=== PATIENT | female | born 1975 | race Caucasian/White ===

== ENCOUNTER 2024-06-04 15:48 | Outpatient (CLI) | payer OTHER ==
[~2024-06-04 15:48] MED LIST: DESPEC-DM TABL1 EACH PO; LOSARTAN POTASS25 MG PO
== END 2024-06-04 15:53 | disposition home or self-care (01) ==
LOC: RAD 15:48
PROVIDERS: ATTEND Obstetrics & Gynecology
DX: Z01.818 Encounter for other preprocedural examination (principal)

== ENCOUNTER 2024-06-06 10:45 | Inpatient (IN) | payer OTHER ==
[2024-06-06] MEDS ORDERED: ACIDOPHILUS1 EAC3 (12:55)
[2024-06-06] MEDS ORDERED: LORAZEPAM0.5 MG (12:55)
[2024-06-06] MEDS ORDERED: METFORMIN HCL500 M3 (12:55)
[2024-06-06] MEDS ORDERED: PEPCID (12:56)
[2024-06-06] MEDS ORDERED: LIPITOR (12:56)
[2024-06-06] MEDS ORDERED: BUDESONIDE (12:58)
[2024-06-06] MEDS ORDERED: VITAMIN D (12:59)
[2024-06-06] MEDS ORDERED: ABILIFY10 MG (12:59)
[2024-06-06 13:00] VITALS: BP 124/78
[2024-06-10] MEDS ORDERED: CEFAZOLIN SODIUM 1,000 MG VIAL ONE ×2 (11:24→18:32)
[2024-06-10] MEDS ORDERED: ENALAPRILAT DIHYDRATE 1.25 MG/ML VIAL IV ONE (14:14)
[2024-06-10] MEDS ORDERED: CEFAZOLIN SODIUM 1,000 MG VIAL IV ONE (15:00)
[2024-06-10] MEDS ORDERED: SUGAMMADEX SODIUM 200 MG/2 ML VIAL IV ONE (15:27)
[2024-06-10] MEDS ORDERED: PROMETHAZINE HCL 25 MG/ML AMPUL IV SCH (16:02)
[2024-06-10] MEDS ORDERED: MEPERIDINE HCL/PF 50 MG/ML VIAL IV SCH (16:02)
[2024-06-10] MEDS ORDERED: POLYETHYLENE GLYCOL 3350 17 GM BLIST.PACK PO SCH (17:00)
[2024-06-10] MEDS ORDERED: CEFAZOLIN SODIUM 1,000 MG VIAL IV SCH (17:00)
[2024-06-10] MEDS ORDERED: MORPHINE SULFATE 4 MG/ML VIAL IV ONE (17:15)
[2024-06-10 19:22] VITALS: BP 124/78
[2024-06-11 01:00] VITALS: BP 132/86
[2024-06-11] MEDS ORDERED: IBUprofen 800 MG TABLET PO SCH (02:00)
[2024-06-11 04:34] LABS: HEMATOCRIT 29.5 % (36.0-45.00); MEAN CELL VOLUME 71.9 fL (80.00-100.00); MEAN CORPUSCULAR HGB CONC 32.3 g/dl (32.0-36.0); PLATELET COUNT 319 K/uL (150-450)
[2024-06-11 04:38] LABS: HEMOGLOBIN 9.5 g/dL (12.0-15.00); MEAN CORPUSCULAR HEMOGLOBIN 23.1 pg (27.00-32.0); RED CELL DISTRIBUTION WIDTH 25.6 % (11.5-14.5)
[2024-06-11] MEDS ORDERED: SIMETHICONE 125 MG CAPSULE PO SCH (05:00)
[2024-06-11] MEDS ORDERED: GABAPENTIN 300 MG CAPSULE PO SCH (05:00)
[2024-06-11 06:16] VITALS: BP 136/85
[2024-06-11] MEDS ORDERED: SOD FERRIC GLUC COMPLX/SUCROSE 125 MG in 0.9 % SODIUM CHLORIDE 100 ML IV SCH (06:30)
[2024-06-11 08:53] VITALS: BP 145/85; O2SAT 98
[2024-06-11 12:44] VITALS: BP 114/78
[2024-06-11 16:00] VITALS: BP 116/73
[2024-06-11] MEDS ORDERED: KETOROLAC TROMETHAMINE 60 MG VIAL IM PRN (16:30)
[2024-06-12] VITALS: BP 93/60
[2024-06-12] MEDS ORDERED: ONDANSETRON HCL 2 MG/ML VIAL IV PRN (07:15)
[2024-06-12] MEDS ORDERED: BUTALB/ACETAMINOPHEN/CAFFEINE 1 TAB TABLET PO SCH (09:00)
[2024-06-12] MEDS ORDERED: FAMOTIDINE/PF 20 MG/2 ML VIAL IV SCH (09:00)
[2024-06-12] MEDS ORDERED: SUCRALFATE 1 G TABLET PO SCH (09:00)
[2024-06-12 09:52] VITALS: BP 123/76; O2SAT 99
[2024-06-12 11:25] LABS: HEMATOCRIT 28.1 % (36.0-45.00); HEMOGLOBIN 9.3 g/dL (12.0-15.00); MEAN CELL VOLUME 74.2 fL (80.00-100.00); MEAN CORPUSCULAR HEMOGLOBIN 24.5 pg (27.00-32.0); PLATELET COUNT 332 K/uL (150-450); RED BLOOD COUNT 3.78 M/uL (4.00-6.00)
[2024-06-12 11:26] LABS: RED CELL DISTRIBUTION WIDTH 25.7 % (11.5-14.5)
[2024-06-12] MEDS ORDERED: MetFORMIN HCL 500 MG TABLET PO SCH (12:07)
[2024-06-12] MEDS ORDERED: LORazepam 0.5 MG TABLET PO SCH (12:07)
[2024-06-12] MEDS ORDERED: LOSARTAN POTASSIUM 25 MG TABLET PO SCH (12:08)
[2024-06-12 12:13] LABS: ALBUMIN 2.9 gm/dL (3.4-5.0); BILIRUBIN TOTAL 0.35 mg/dL (0.3-1.2); CREATININE SERUM 0.66 mg/dL (0.55-1.02); POTASSIUM 3.89 mEq/L (3.5-5.1); TOTAL PROTEIN 6.9 gm/dL (6.4-8.2)
[2024-06-12 16:21] VITALS: BP 112/80
[2024-06-12] MEDS ORDERED: DIPHENHYDRAMINE HCL MM SCH (17:00)
[2024-06-12] MEDS ORDERED: PANTOPRAZOLE SODIUM 40 MG TABLET.DR PO SCH (17:00)
[2024-06-12] MEDS ORDERED: LIDOCAINE HCL MM SCH (17:00)
[2024-06-12] MEDS ORDERED: DEXAMETHASONE 6 MG MM SCH (17:00)
[2024-06-12 20:00] VITALS: BP 116/79
[2024-06-13] VITALS: BP 120/80
[2024-06-13] MEDS ORDERED: MINERAL OIL 30 ML BLIST.PACK PO STA (06:51)
[2024-06-13] MEDS ORDERED: BISACODYL 10 MG/SUPP.RECT SUPP.RECT RECTAL STA (06:52)
[2024-06-13] MEDS ORDERED: MAGNESIUM HYDROXIDE 30 ML BLIST.PACK PO STA (06:52)
[2024-06-13 07:40] LABS: HEMATOCRIT 27.1 % (36.0-45.00); MEAN CELL VOLUME 74.7 fL (80.00-100.00); MEAN CORPUSCULAR HGB CONC 32.2 g/dl (32.0-36.0); PLATELET COUNT 324 K/uL (150-450); RED BLOOD COUNT 3.63 M/uL (4.00-6.00)
[2024-06-13 07:53] LABS: HEMOGLOBIN 8.7 g/dL (12.0-15.00); MEAN CORPUSCULAR HEMOGLOBIN 23.9 pg (27.00-32.0); RED CELL DISTRIBUTION WIDTH 25.4 % (11.5-14.5)
[2024-06-13 08:00] VITALS: BP 133/83
[2024-06-13] MEDS ORDERED: SOD FERRIC GLUC COMPLX/SUCROSE 62.5 MG/5 ML AMPUL IV ONE (08:04)
[2024-06-13] MEDS ORDERED: FUROsemide 20 MG/2 ML VIAL IV PRN (14:00)
[2024-06-13 15:37] VITALS: BP 135/87
[2024-06-13] MEDS ORDERED: ENALAPRILAT DIHYDRATE 1.25 MG/ML VIAL IV PRN (19:45)
[2024-06-13] MEDS ORDERED: ACETAMINOPHEN 500 MG GEL..CAP PO PRN (22:00)
[2024-06-14 01:20] VITALS: BP 117/80
[2024-06-14 08:25] LABS: HEMATOCRIT 33.2 % (36.0-45.00); HEMOGLOBIN 10.6 g/dL (12.0-15.00); MEAN CELL VOLUME 74.8 fL (80.00-100.00); MEAN CORPUSCULAR HEMOGLOBIN 23.8 pg (27.00-32.0); MEAN CORPUSCULAR HGB CONC 31.8 g/dl (32.0-36.0); PLATELET COUNT 326 K/uL (150-450); RED BLOOD COUNT 4.44 M/uL (4.00-6.00); RED CELL DISTRIBUTION WIDTH 24.3 % (11.5-14.5)
[2024-06-14 09:32] VITALS: BP 124/83
[2024-06-14 16:09] VITALS: BP 99/63
[2024-06-14 20:00] VITALS: BP 110/75
[2024-06-15 01:27] VITALS: BP 112/74
[2024-06-15 06:49] VITALS: BP 115/81
[2024-06-15] MEDS ORDERED: GABAPENTIN300 MG PO (07:07)
[2024-06-15] MEDS ORDERED: PANTOPRAZOLE SO40 MG PO (07:07)
[2024-06-15] MEDS ORDERED: IBUPROFEN800 MG PO (07:07)
[2024-06-15] MEDS ORDERED: SIMETHICONE125 M1 PO (07:07)
[2024-06-15] MEDS ORDERED: HIBICLENS118 ML SPEPROC (07:08)
[2024-06-15] MEDS ORDERED: POLY119PG PO (07:08)
[2024-06-15] MEDS ORDERED: DUI500 PO (07:08)
[2024-06-15 13:00] VITALS: BP 163/79
== END 2024-06-15 14:25 | disposition home or self-care (01) | DRG 742 ==
LOC: O/R 06-10 05:21 → OB/GYN 06-10 09:30
PROVIDERS: Internal Medicine; ADMIT Obstetrics & Gynecology; ATTEND Obstetrics & Gynecology
PROC: 0UT70ZZ Resection of Bilateral Fallopian Tubes, Open Approach (ICD-10-PCS; 2024-06-10)
PROC: 0UT90ZZ Resection of Uterus, Open Approach (ICD-10-PCS; principal; 2024-06-10 09:30)
PROC: 30233N1 Transfusion of Nonautologous Red Blood Cells into Peripheral Vein, Percutaneous Approach (ICD-10-PCS; 2024-06-13)
DX: D25.1 Intramural leiomyoma of uterus (principal); D62 Acute posthemorrhagic anemia; D25.2 Subserosal leiomyoma of uterus; D25.0 Submucous leiomyoma of uterus; N80.03 Adenomyosis of the uterus; N72 Inflammatory disease of cervix uteri; Z20.822 Contact with and (suspected) exposure to COVID-19

== ENCOUNTER 2024-09-24 12:55 | Outpatient (CLI) | payer OTHER ==
[~2024-09-24 12:55] MED LIST changes: +ABILIFY10 MG; +ACIDOPHILUS1 EAC3; +BUDESONIDE; +DUI500 PO; +GABAPENTIN300 MG PO; +HIBICLENS118 ML SPEPROC; +IBUPROFEN800 MG PO; +LIPITOR; +LORAZEPAM0.5 MG; +METFORMIN HCL500 M3; +PANTOPRAZOLE SO40 MG PO; +PEPCID; +POLY119PG PO; +SIMETHICONE125 M1 PO; +VITAMIN D
== END 2024-09-24 13:10 | disposition home or self-care (01) ==
LOC: SONOGRAMA 12:55
PROVIDERS: ATTEND Obstetrics & Gynecology
DX: N94.0 Mittelschmerz (principal); R10.2 Pelvic and perineal pain; N94.89 Other specified conditions associated with female genital organs and menstrual cycle

== ENCOUNTER 2025-05-10 18:51 | Emergency (ER) | payer OTHER ==
[~2025-05-10] VITALS: Ht 180.3 cm; Wt 138.8 kg
[2025-05-10] MEDS ORDERED: PROAIR RESPICL90 MCG (20:14)
[2025-05-10] MEDS ORDERED: ATIVAN0.5 M1 PO (20:14)
[2025-05-10] MEDS ORDERED: RINGERS SOLUTION,LACTATED 1,000 ML IV STA (22:09)
[2025-05-10] MEDS ORDERED: PIPERACILLIN/TAZOBACTAM SODIUM 3.375 GM VIAL IV STA (22:11)
[2025-05-10] MEDS ORDERED: LORazepam 2 MG/ML VIAL IV STA (22:15)
[2025-05-10] MEDS ORDERED: PIPERACILLIN/TAZOBACTAM SODIUM 3.375 GM VIAL IV ONE (22:20)
[2025-05-10 23:05] LABS: BASO % 0.3 % (0.1-1.2); EOS # 0.10 (0.04-0.54); EOS % 1.0 % (0.7-7.0); LYMPH # 2.80 (1.18-3.74); LYMPH % 28.6 % (19.3-53.1); MEAN PLATELET VOLUME 9.90 fl (9.4-12.4); MONO # 0.95 (0.24-0.82); MONO % 9.7 % (4.7-12.5); NEUT # 5.90 (1.56-6.13); NEUT % 60.2 % (34.0-71.1); RED CELL DISTRIBUTION WIDTH 13.2 % (11.6-14.4)
[2025-05-10 23:21] LABS: INR 1.04
[2025-05-10 23:25] LABS: ALT/SGPT 34.0 U/L (12-78); AST/SGOT 29.0 U/L (15-37); BILIRUBIN TOTAL 0.42 mg/dL (0.3-1.2); BUN CREA RATIO 16.0 (7.0-25.0); CREATININE SERUM 0.94 mg/dL (0.55-1.02); GFR 63.56; GLOBULINA 4.3 G/DL (2.4-3.5); GLUCOSE FASTING 182.0 mg/dL (65-100); OSMOLALITY SERUM 285.0 MOSM/KG (275-295)
[2025-05-11] MEDS ORDERED: LORazepam 2 MG/ML VIAL ONE (00:11)
[2025-05-11] MEDS ORDERED: KETOROLAC TROMETHAMINE 30 MG VIAL IV STA (02:24)
[2025-05-11] MEDS ORDERED: KETOROLAC TROMETHAMINE 30 MG VIAL ONE (02:28)
[2025-05-11 02:43] LABS: URINE APPEARANCE Clear; URINE BILIRRUBIN Negative (NEGATIVE); URINE BLOOD Negative; URINE COLOR Yellow; URINE GLUCOSE Negative (NEGATIVE); URINE KETONE Trace (NEGATIVE); URINE LEUKOCYTE Negative; URINE NITRATE Negative; URINE PROTEIN Negative (NEGATIVE); URINE UROBILINOGEN 1.0 E.U./dl
[2025-05-11 02:46] LABS: URINE BACTERIA 76.7 uL (0.0-1933); URINE EPITHELIAL CELLS 9.9 uL (0.0-38.8); URINE RBC 6.5 uL (0.0-20.8); URINE WBC 1.9 uL (0.0-23.2)
[2025-05-11 03:01] LABS: TYPE CELLS SQUAMOUS; URINE CAST 0.00 uL (0.0-1.40)
== END 2025-05-11 05:22 | disposition home or self-care (01) ==
LOC: ER 18:51
DX: L03.311 Cellulitis of abdominal wall (principal); Z88.1 Allergy status to other antibiotic agents; Z91.018 Allergy to other foods; I10 Essential (primary) hypertension; F41.0 Panic disorder [episodic paroxysmal anxiety]; E11.9 Type 2 diabetes mellitus without complications; Z79.84 Long term (current) use of oral hypoglycemic drugs